=== PATIENT | male | born 1955 | race Caucasian/White ===

== ENCOUNTER 2024-02-11 20:59 | Emergency (ER) | payer OTHER, SELFPAY ==
[2024-02-11 21:04] VITALS: BP 130/82; BMI 30.3
[2024-02-12] VITALS (10 sets, daily range): BP systolic 122–156; BP diastolic 67–95
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
[2024-02-12 03:04] LABS: % Basophils 0.3 % (0-2); % Eosinophils 1.9 % (0-6); % Immature Granulocytes 0.3 % (0-0.5); % Lymphocytes 14.2 % (20.5-51.1); % Monocytes 9.3 % (1.7-9.3); Absolute Eosinophils 0.2 10^3/uL (0-0.7); Absolute Lymphocytes 1.5 10^3/uL (1.2-3.4); Absolute Neutrophils 7.9 10^3/uL (1.4-6.5); Hematocrit 45.1 % (39.0-52.0); Hemoglobin 14.5 g/dL (13.0-18.0); Mean Corp Hgb Conc. 32.2 g/dL (33.0-37.0); Mean Corpuscular Hgb 29.1 pg (27.0-31.0); Mean Corpuscular Volume 90.4 fL (80.0-94.0); Mean Platelet Volume 9.8 fL (7.4-10.4); Nucleated Red Blood Cells % 0 % (-); Platelet Count 207 10^3/uL (130-400); Red Blood Cell Count 4.99 10^6/uL (4.70-6.10); Red Cell Dist. Width 13.9 % (11.5-14.5); White Blood Cell Count 10.6 10^3/uL (4.8-10.8)
[2024-02-12] MEDS: NSS 1000 IV (03:15)
[2024-02-12 03:17] LABS: ALT (SGPT) 22 U/L (0-50); AST (SGOT) 36 U/L (17-59); Albumin 4.5 g/dl (3.5-5.0); Alkaline Phosphatase 119 U/L (38-126); Blood Urea Nitrogen 22 mg/dl (9-20); Calcium 10.3 mg/dl (8.4-10.2); Carbon Dioxide 22 mmol/L (22-30); Chloride 103 mmol/L (98-107); Estimated Creatinine Clearance 86 ml/min; Glucose 109 mg/dl (70-99); Sodium 138 mmol/L (135-145); Total Protein 7.6 g/dl (6.3-8.2); eGFR > 60.00
== END 2024-02-12 04:50 ==
LOC: EMR 20:59
PROVIDERS: Clinical Nurse Specialist Family Health; EMERGENCY PHYSICIAN Emergency Medicine
DX: T84.020A Dislocation of internal right hip prosthesis, initial encounter (principal); X50.0XXA Overexertion from strenuous movement or load, initial encounter; F17.200 Nicotine dependence, unspecified, uncomplicated
CPT/HCPCS: 99285; 27265; 96360; 99152; 73501; 73502; 80053; 85025

== ENCOUNTER 2024-03-11 01:49 | Inpatient (IN) | payer OTHER, SELFPAY ==
[2024-03-10] VITALS (34 sets, daily range): BP systolic 90–161; BP diastolic 40–147; BMI 30.7
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
[2024-03-11] VITALS (14 sets, daily range): BP systolic 119–162; BP diastolic 70–103
[2024-03-11] LABS: % Basophils 0.2 % (0-2); % Eosinophils 1.1 % (0-6); % Immature Granulocytes 0.3 % (0-0.5); % Lymphocytes 14.7 % (20.5-51.1); % Monocytes 9.7 % (1.7-9.3); Absolute Eosinophils 0.1 10^3/uL (0-0.7); Absolute Lymphocytes 0.9 10^3/uL (1.2-3.4); Absolute Monocytes 0.6 10^3/uL (0.1-0.6); Absolute Neutrophils 4.6 10^3/uL (1.4-6.5); Hematocrit 34.8 % (39.0-52.0); Hemoglobin 12.1 g/dL (13.0-18.0); Mean Corp Hgb Conc. 34.8 g/dL (33.0-37.0); Mean Corpuscular Hgb 29.7 pg (27.0-31.0); Mean Corpuscular Volume 85.5 fL (80.0-94.0); Mean Platelet Volume 9.5 fL (7.4-10.4); Nucleated Red Blood Cells % 0 % (-); Platelet Count 140 10^3/uL (130-400); Red Blood Cell Count 4.07 10^6/uL (4.70-6.10); Red Cell Dist. Width 12.7 % (11.5-14.5); White Blood Cell Count 6.2 10^3/uL (4.8-10.8)
[2024-03-11 00:09] LABS: ALT (SGPT) 28 U/L (0-50); AST (SGOT) 30 U/L (17-59); Albumin 3.3 g/dl (3.5-5.0); Alkaline Phosphatase 112 U/L (38-126); Blood Urea Nitrogen 22 mg/dl (9-20); Calcium 8.9 mg/dl (8.4-10.2); Carbon Dioxide 23 mmol/L (22-30); Chloride 102 mmol/L (98-107); Estimated Creatinine Clearance 105 ml/min; Glucose 105 mg/dl (70-99); Sodium 132 mmol/L (135-145); Total Bilirubin 0.4 mg/dl (0.2-1.3); Total Protein 6.1 g/dl (6.3-8.2); eGFR > 60.00
[2024-03-11 00:13] LABS: Erythrocyte Sed Rate 31 mm/hour (0-20)
--- NOTE | 2024-03-11 01:23 | HPS.HSE ---
Family Physician
-
Family Physician: Facility [facility]
Chief Complaint
-
Right Hip Pain
History of Present Illness
Patient is a 68y M with PMH significant for hypertension and R KAL who presents to ED from shelter complaining of right hip pain. Patient states that he was getting into bed this evening when he felt sudden pain in the R hip. He immediately felt
that it was dislocated. He has had similar dislocations in the past. He was seen here in the ED on 02/11 with hip dislocation and it was successfully reduced under conscious sedation at that time. Patient denies any other current complaints or
concerns.
Medical History
Past Medical History
Past Medical History: Reports Other
Additional Past Medical History:
Hypertension
Mood Disorder
Past Surgical History: Reports Other
Additional Past Surgical History:
Right KAL ()
Social History
Tobacco: Former Smoker (Quit smoking at the time of his initial incarceration. > 40 pack years total use.)
Alcohol: None
Family History
Family History: Not pertinent
Allergies / Home Medications
Allergies reflects when Allergies were last updated in [email or web address].
Home Medications with original date entered in [email or web address]
Allergy/Medication List:
Allergies
Allergy/AdvReac Type Severity Reaction Status Date / Time
No Known Allergies Allergy Unverified 03/10/24 19:14
Home Medications
acetaminophen 325 mg tablet 650 mg PO BID PRN mild pain/fever 03/10/24
clotrimazole 1 % topical cream 1 applic topical BID 03/10/24
losartan 25 mg tablet (Cozaar) 25 mg PO DAILY 03/10/24
multivitamin 1 tab PO DAILY 03/10/24
risperidone 0.5 mg tablet 0.5 mg PO BID 03/10/24
Review of Systems
-
History Source: Patient
A 12 point ROS was completed and negative except as noted: Yes
Constitutional: Denies Fever or Chills
Respiratory: Denies Cough or Trouble Breathing
Cardiac: Denies Chest Pain or Palpitations
Abdomen/GI: Denies Abdominal Pain, Nausea, Vomiting or Diarrhea
Musculoskeletal: Reports Joint Pain
Neurological: Denies Dizzy or Headache
Physical Exam
Vital Signs
Vital Signs
Temp Pulse Resp BP Pulse Ox
98 F 119 31 129/89 95
03/10/24 23:28 03/11/24 01:00 03/11/24 01:00 03/11/24 00:00 03/10/24 23:45
Physical Exam
General: Other (68y M in no acute distress.)
HEENT: Moist mucous membranes and PERRLA
Respiratory: Clear; No Wheezes, Rales or Rhonchi
Cardiac: S1/S2, Regular Rhythm (with ectopy) and Tachycardia; No Murmur
GI: Soft, Non Tender, Non Distended and Normal Bowel Sounds
Musculoskeletal: No Clubbing, No Cyanosis and Other (RLE internally rotated. Trace - 1+ edema at ankles.)
Skin: Other (Plaques / rashes over knees / thighs bilaterally.)
Neuro: AO x 3
Laboratory Results
-
03/10/24 23:47
03/10/24 23:47
Laboratory Results
Total Bilirubin 0.4 mg/dl (0.2-1.3) 03/10/24 23:47
AST 30 U/L (17-59) 03/10/24 23:47
ALT 28 U/L (0-50) 03/10/24 23:47
Alkaline Phosphatase 112 U/L (38-126) 03/10/24 23:47
Impression/Plan
-
A/P: Patient is a 68y M with PMH significant for hypertension and mood disorder who presents to ED from shelter for evaluation of R hip pain.
Right KAL Dislocation
- Admit for further evaluation and treatment.
- Closed reduction was attempted in the ED without success by both ED physician and Orthopedics.
- Pain control / bedrest overnight.
- Ortho re-eval in AM and likely reduction attempt under anesthesia.
- Prophylactic abx for now per Ortho recommendations.
Benign Hypertension
- Stable. Continue losartan.
Mood Disorder
- Stable. ? official diagnosis.
- Continue risperdal.
Psoriasis
- Continue topical steroid.
DVT Prophylaxis: SCDs
Code Status: Full
--- NOTE | 2024-03-11 02:25 | TRANSFER ---
Addendum entered by Brooke Perez RN 03/11/24 02:29:
Pt also reports that they have psoriasis. Multiple areas all over the body w dried scaly skin noted.
Original Note:
pt arrived to floor at 0210 dx right hip dislocation, accompanied by x2 [facility] guards. Pt is AAOx3, able to make all needs known. RLE shortened, internally rotated. B/L LE with +2 nonpitting edema - pt reports is chronic. Pt ordered bedrest, urinal
at bedside. Call miranda within reach, bed in lowest position.
[2024-03-11] MEDS: ANCEF 5 IV ×3 (02:47→18:07)
[2024-03-11 06:39] LABS: Hematocrit 36.7 % (39.0-52.0); Hemoglobin 12.4 g/dL (13.0-18.0); Mean Corp Hgb Conc. 33.8 g/dL (33.0-37.0); Mean Corpuscular Hgb 29.1 pg (27.0-31.0); Mean Corpuscular Volume 86.2 fL (80.0-94.0); Mean Platelet Volume 9.5 fL (7.4-10.4); Platelet Count 142 10^3/uL (130-400); Red Blood Cell Count 4.26 10^6/uL (4.70-6.10); Red Cell Dist. Width 12.7 % (11.5-14.5); White Blood Cell Count 6.3 10^3/uL (4.8-10.8)
[2024-03-11 06:51] LABS: Blood Urea Nitrogen 18 mg/dl (9-20); Calcium 9.4 mg/dl (8.4-10.2); Carbon Dioxide 21 mmol/L (22-30); Chloride 102 mmol/L (98-107); Estimated Creatinine Clearance 105 ml/min; Glucose 95 mg/dl (70-99); Sodium 134 mmol/L (135-145); eGFR > 60.00
--- NOTE | 2024-03-11 07:16 | W.PN.UPDATE ---
Update Note
Progress Note Update
Patient unfortunately sustained right total hip replacement dislocation yesterday. Attempted closed reduction in emergency room was unsuccessful yesterday. He will be taken to the operating room for anesthesia and right hip closed reduction versus
open reduction. Surgical location marked and consents signed by patient.
[2024-03-11] MEDS: LOTRIMIN 1% CREAM 1 APPLIC TOPICAL ×2 (08:01→20:30)
[2024-03-11] MEDS: RISPERDAL 0.5 MG PO ×2 (08:01→20:30)
[2024-03-11] MEDS: COZAAR 25 MG PO (08:02)
[2024-03-11] MEDS: DILAUDID 0.5 MG IV (09:32)
--- NOTE | 2024-03-11 12:04 | W.PN.HOSP.TC ---
Today's Communication/Plan
-
Awaiting OR time
Assessment / Plan
Assessment / Plan
Gen-AAOx3, NAD
HEENT-NC, AT, anicteric, clear oral mm
Neck-supple
CV-reg, no M, +S1/S2
Lungs-clear B/L
Abd-soft, NT, ND
Ext-no edema
Musculoskeletal-no cyanosis, clubbing, right lower extremity shortened
Skin-warm and dry
Neuro-grossly non-focal
Psych-calm, cooperative
Acute right total hip replacement dislocation -unsuccessful closed reduction in the emergency room. Orthopedic surgery input noted. Awaiting reduction in the OR, closed versus open.
Essential HTN with HTN urgency - urgency likely due to pain from hip dislocation. Losartan resumed.
Mood disorder - on Risperdal.
Psoriasis
Former smoker - quit last month.
Full code
PT/OT after hip reduction.
Anticipated Discharge: Within 24 hours
Subjective/Interval History
-
Date of Service: March 11, 2024
Patient seen/examined. Pain is controlled currently, no complaints.
Objective Data
-
Labs:
Laboratory Results
03/10/24 03/11/24
23:47 05:38
WBC 6.3
Hgb 12.4 L
Hct 36.7 L
Plt Count 142
Sodium 132 L 134 L
Potassium 4.0 4.0
Chloride 102 102
Carbon Dioxide 23 21 L
BUN 22 H 18
Creatinine 0.8 0.8
Glucose 105 H 95
Calcium 8.9 9.4
Total Bilirubin 0.4
AST 30
ALT 28
Alkaline Phosphatase 112
Vital Signs:
Vital Signs
Temp Pulse Resp BP Pulse Ox
97.5 F 112 17 162/96 97
03/11/24 11:00 03/11/24 11:00 03/11/24 11:00 03/11/24 11:00 03/11/24 11:00
I&O
03/10/24 03/11/24 03/12/24
06:59 06:59 06:59
Output Total 750 / 750 1050 / 1050
Balance -750 / -750 -1050 / -1050
Review of Systems
-
History Source: Patient
All other systems: Reviewed and negative
--- NOTE | 2024-03-11 12:13 | CM ---
Chart reviewed: Patient from [facility]
Going to OR today for closed reduction of hip dislocation
Case Management will follow for DC needs
--- NOTE | 2024-03-11 17:34 | W.PN.UPDATE ---
Addendum entered and electronically signed by Joe Kumar PA-C 03/12/24 07:31:
CORRECTION: will require 12 weeks of abduction bracing and posterior hip precautions
Original Note:
Update Note
Progress Note Update
68M s/p closed reduction of posterior KAL dislocation 03/11/2024
-reg diet or otherwise per primary
-DVT ppx per primary
-WBAT to RLE; abductor brace ordered for out of bed x6 weeks; abductor pillow foam while in bed at all times
-posterior hip precautions; PT/OT consult
-per procedure note, required maximal axial traction while supine with internal to external rotation for reduction
-if recurrent instability, recommend f/u with location of index surgery of his R KAL for definitive management for KAL recurrent instability
--- NOTE | 2024-03-11 18:10 | OR.RPT ---
Operative Report
Operative Report
Orthopedic Surgery Procedure Note
DATE OF OPERATION: 03/11/2024
PREOPERATIVE DIAGNOSES: Right prosthetic hip dislocation
POSTOPERATIVE DIAGNOSES: Same
OPERATION PERFORMED: Closed reduction right prosthetic hip
SURGEON: Rogelio Pimentel MD
ASSISTANTS: Joe Kumar PA-C
ANESTHESIA: General
COMPLICATIONS: None
INDICATIONS FOR PROCEDURE: The patient presented to the emergency department with a right prosthetic dislocation. Close reduction was attempted in the emergency department was unsuccessful. Discussed with patient and shared decision was to proceed
with closed reduction in operating room. He was consented for possible open reduction. His hip replacement was performed in outside facility about 20 years ago. The patient reports dislocating the hip after flexing to get into bed. He had a
dislocation about a month ago that was closed reduced in the OR.
We discussed the risks, benefits, and alternatives of various treatment options. Shared decision was to proceed with closed reduction. The patient understood the risks including, but not limited to, bleeding, infection, failure to relieve pain, more
pain than preop, damage to blood vessels and nerves, need for reoperation, mechanical failure of the implants, wound healing problems, stiffness, recurrent instability, blood clot, pulmonary embolism, myocardial infarction, pneumonia, arrhythmia,
CVA, and . The patient accepted these risks and wished to proceed with the procedure. All questions were answered and informed consent was obtained.
PROCEDURE IN DETAIL:
The patient was identified in the preoperative holding area. The affected limb was identified as the procedure site and marked for safety. The patient was transferred to the operating room and transferred to the operative table. General anesthesia
was performed. All bony prominences were well-padded.
Once the patient was sedated muscle relaxer was given, the hip was closed reduced with traction and internal rotation and extension. Once the hip was felt to reduce the hip was then flexed and externally rotated. This took multiple attempts with
different reduction techniques including lateral positioning. The successful reduction attempt was as described above axial traction with maximal internal rotation with the patient's supine extended. Fluoroscopy was used to confirm closed
reduction. An abduction pillow was placed. The patient awoke from anesthesia without complication.
Plan:
- Abduction brace for 3 months while ambulatory: No more than 90 degrees of flexion, 10 of adduction, or 10 of internal rotation
- Abduction pillow while in bed
- WBAT
- Posterior hip precautions
- PT/OT
[2024-03-12] VITALS (9 sets, daily range): BP systolic 93–147; BP diastolic 57–92; PULSE 102–105; O2SAT 95
[2024-03-12] MEDS: ANCEF 5 IV ×2 (02:01→09:30)
--- NOTE | 2024-03-12 07:36 | W.PN.ORTHO ---
Today's Communication / Plan
-
- Abduction brace for 3 months while ambulatory: No more than 90 degrees of flexion, 10 of adduction, or 10 of internal rotation
- Abduction pillow while in bed
- WBAT
- Posterior hip precautions
- PT/OT
Assessment
.
Distal Motor Intact: Yes
Dressing:
Clean, dry and intact.
Plan
.
Surgery / Date: Right KAL closed reduction 11 Mar 2024
Activity:
Out of bed.
PT/OT
Subjective
.
.:
Patient resting comfortably.
Vital Signs and Labs
.
Vital Signs and Labs:
Lab Results
03/11/24 05:38
03/11/24 05:38
Temp Pulse Resp BP Pulse Ox
100.2 F 115 14 125/72 95
03/12/24 03:00 03/12/24 03:00 03/12/24 03:00 03/12/24 03:00 03/12/24 03:00
[2024-03-12] MEDS: RISPERDAL 0.5 MG PO ×2 (07:56→20:42)
[2024-03-12] MEDS: COZAAR 25 MG PO (07:56)
[2024-03-12] MEDS: LOTRIMIN 1% CREAM 1 APPLIC TOPICAL ×2 (07:57→20:42)
--- NOTE | 2024-03-12 11:55 | W.PN.HOSP.TC ---
Addendum entered and electronically signed by Ziggy Marlow DO 03/12/24 12:59:
Cellulitis was ruled out
Original Note:
Today's Communication/Plan
-
Await abduction brace
PT/OT
Stop cefazolin
Check COVID-19 antigen
Assessment / Plan
Assessment / Plan
Gen-AAOx3, NAD
HEENT-NC, AT, anicteric, clear oral mm
Neck-supple
CV-reg, no M, +S1/S2
Lungs-clear B/L
Abd-soft, NT, ND
Ext-no edema
Musculoskeletal-no cyanosis, clubbing, right lower extremity shortened
Skin-warm and dry
Neuro-grossly non-focal
Psych-calm, cooperative
Acute right total hip replacement dislocation -underwent successful closed reduction in the OR on March 11. Abduction brace ordered, has yet to be delivered. Weightbearing as tolerated as per orthopedics. Awaiting PT/OT input. Discontinue further
antibiotics.
Fever -unclear etiology. Has had a chronic smoker's cough. Denies flulike symptoms. Check COVID antigen. Check CBC today. Looks nontoxic.
Essential HTN with HTN urgency - urgency resolved. Continue losartan.
Mood disorder - on Risperdal.
Psoriasis
Former smoker - quit last month.
Full code
Dispo -back to [facility] if medically stable. Otherwise will need SNF.
Anticipated Discharge: Within 24 hours
Subjective/Interval History
-
Date of Service: March 12, 2024
Patient seen and examined. Complaining of cough.
Objective Data
-
Labs:
Laboratory Results
03/12/24
11:43
WBC Pending
Hgb Pending
Hct Pending
Plt Count Pending
Vital Signs:
Vital Signs
Temp Pulse Resp BP Pulse Ox
100.0 F 121 18 129/75 93
03/12/24 10:00 03/12/24 07:56 03/12/24 07:05 03/12/24 07:56 03/12/24 07:05
I&O
03/11/24 03/12/24 03/13/24
06:59 06:59 06:59
Intake Total 595 / 595
Output Total 750 / 750 3075 / 3075
Balance -750 / -750 -2480 / -2480
Review of Systems
-
History Source: Patient
All other systems: Reviewed and negative
[2024-03-12 12:07] LABS: COVID-19 Antigen Negative (Negative)
--- NOTE | 2024-03-12 12:11 | CM ---
ORIF yesterday R hip 03/11/24.
As per Ortho note waiting for abduction brace . Will need for dc.
[facility]. Spoke with Alethea perdomo [facility] aware of above.
Guards with patient.
Will be transported to [facility] via [facility] van at dc.
[facility]
report [phone]
fax [phone]
PLAN Return to [facility]
--- NOTE | 2024-03-12 12:33 | PN.CDI ---
CDI
- -
CDI:
Physician Documentation Request
Admit Date: 03/11/24 01:49
Dear Doctor Ele,
Please review the following and provide your response in the progress notes.
Clinical Indicators:
The diagnosis of cellulitis was documented on 03/10 Ortho consult but is not consistently noted in subsequent documentation.
- 03/10 Ortho 'Right lower leg cellulitis and swelling...Recommend prophylactic antibiotics for cellulitis'
- 03/12 PN 'Psoriasis
- IV abx Ancef Q8hr given x 5
Please clarify the following:
____ - Cellulitis was present on admission and is now resolved.
____ - Cellulitis was present on admission and is still being monitored, evaluated or treated
____ - Cellulitis was ruled out
____ - Other
Use of terms such as suspected, likely, concern for, or probable (associated with a specific diagnosis that is being evaluated, monitored, or treated as if it exists) are acceptable and can be coded in the inpatient setting, when documented at the
time of discharge.
Thank you,
Ruth Soto RN
CDI Specialist
Please use your independent medical judgment in providing your response.
[2024-03-12 16:25] LABS: % Basophils 0.3 % (0-2); % Eosinophils 1.4 % (0-6); % Immature Granulocytes 0.3 % (0-0.5); % Lymphocytes 16.4 % (20.5-51.1); % Monocytes 8.6 % (1.7-9.3); Absolute Eosinophils 0.1 10^3/uL (0-0.7); Absolute Lymphocytes 1.2 10^3/uL (1.2-3.4); Absolute Monocytes 0.6 10^3/uL (0.1-0.6); Absolute Neutrophils 5.3 10^3/uL (1.4-6.5); Hemoglobin 12.9 g/dL (13.0-18.0); Mean Corp Hgb Conc. 33.1 g/dL (33.0-37.0); Mean Corpuscular Hgb 29.5 pg (27.0-31.0); Mean Platelet Volume 9.8 fL (7.4-10.4); Nucleated Red Blood Cells % 0 % (-); Platelet Count 156 10^3/uL (130-400); Red Blood Cell Count 4.38 10^6/uL (4.70-6.10); Red Cell Dist. Width 12.5 % (11.5-14.5); White Blood Cell Count 7.2 10^3/uL (4.8-10.8)
[2024-03-13] VITALS (7 sets, daily range): BP systolic 119–149; BP diastolic 72–90; PULSE 115
[2024-03-13] MEDS: RISPERDAL 0.5 MG PO ×2 (08:42→20:22)
[2024-03-13] MEDS: COZAAR 25 MG PO (08:42)
[2024-03-13] MEDS: LOTRIMIN 1% CREAM 1 APPLIC TOPICAL ×2 (08:43→20:22)
--- NOTE | 2024-03-13 13:15 | W.PN.HOSP.TC ---
Today's Communication/Plan
-
TSH
D-dimer
PT/OT
Assessment / Plan
Assessment / Plan
Gen-AAOx3, NAD
HEENT-NC, AT, anicteric, clear oral mm
Neck-supple
CV-reg, no M, +S1/S2
Lungs-clear B/L
Abd-soft, NT, ND
Ext-no edema
Musculoskeletal-no cyanosis, clubbing, right lower extremity shortened
Skin-warm and dry
Neuro-grossly non-focal
Psych-calm, cooperative
Acute right total hip replacement dislocation -underwent successful closed reduction in the OR on March 11. Abduction brace per orthopedics. Weightbearing as tolerated as per orthopedics. Awaiting PT/OT input.
Fever -unclear etiology. No evidence of cellulitis. Off antibiotics. Fever resolved. Has had a chronic smoker's cough. Denies flulike symptoms. COVID-19 and influenza negative. Lower extremity Doppler ultrasound negative. Chest x-ray clear.
White blood cell count normal.
Persistent sinus tachycardia -check TSH, D-dimer. If D-dimer elevated will check CTA to rule out pulm embolism. Asymptomatic otherwise.
Essential HTN with HTN urgency - urgency resolved. Continue losartan.
Mood disorder - on Risperdal.
Psoriasis
Former smoker - quit last month.
Full code
Dispo -back to [facility] if medically stable. Otherwise will need SNF. PT note mentions disposition to be determined.
Anticipated Discharge: Within 24 hours
Subjective/Interval History
-
Date of Service: March 13, 2024
Patient seen and examined. No complaints.
Objective Data
-
Vital Signs:
Vital Signs
Temp Pulse Resp BP Pulse Ox
98.6 F 116 16 142/79 97
03/13/24 11:08 03/13/24 11:08 03/13/24 11:08 03/13/24 11:08 03/13/24 11:08
I&O
03/12/24 03/13/24 03/14/24
06:59 06:59 06:59
Intake Total 595 / 595 960 / 960
Output Total 3075 / 3075 1100 / 1100
Balance -2480 / -2480 -140 / -140
Review of Systems
-
History Source: Patient
All other systems: Reviewed and negative
[2024-03-13 14:39] LABS: D-Dimer 2.01 ug/mlFEU (0.00-0.50)
--- NOTE | 2024-03-13 14:44 | W.PN.ORTHO ---
Today's Communication / Plan
-
68-year-old male underwent Right KAL closed reduction [address] Pimentel.
- Abduction brace for 3 months while ambulatory: No more than 90 degrees of flexion, 10 of adduction, or 10 of internal rotation.
- Abduction pillow while in bed
- WBAT
- Posterior hip precautions
- PT/OT
- If recurrent instability, recommend F/U with location of index surgeon of his R KAL for definitive management for KAL recurrent instability.
- Orthopedic surgery will sign-off at this time. Please reengage with any further questions or concerns.
Assessment
.
Distal Motor Intact: Yes
Dressing:
Clean, dry and intact.
Plan
.
Surgery / Date: Right KAL closed reduction 11 Mar 2024
Activity:
Out of bed.
PT/OT
Subjective
.
.:
Patient resting comfortably.
Vital Signs and Labs
.
Vital Signs and Labs:
Lab Results
03/12/24 16:08
03/11/24 05:38
Temp Pulse Resp BP Pulse Ox
98.6 F 116 16 142/79 97
03/13/24 11:08 03/13/24 11:08 03/13/24 11:08 03/13/24 11:08 03/13/24 11:08
[2024-03-13 15:34] LABS: TSH Reflex To Free T4 0.67 uIU/ml (0.47-4.68)
[2024-03-13] MEDS: LR 1000 IV (17:23)
--- NOTE | 2024-03-13 17:35 | W.PN.UPDATE ---
Addendum entered and electronically signed by Tony Shah MD 03/13/24 17:50:
Twelve-lead simply shows a underlying sinus rhythm with right bundle branch block and a rate of 90-100/on further inspection of rhythm strips during sleep patient has sinus bradycardia with an occasional dropped beat and/or a idioventricular beat
difficult to tell if some degree of second-degree heart block would benefit from a Holter monitor during sleep may be also aspirating or underlying sleep apnea given results of CT scan not on rate limiting medication and has not received any
narcotics today informed nursing to avoid any sedation during sleep
Original Note:
Update Note
Progress Note Update
Called by nursing as they noted a heart rate of 35 when woke the patient up heart rate reverted to about 100 looks like bundle branch block pattern will obtain twelve-lead review strips then/CTA of chest negative for pulmonary embolus however shows
bronchial impaction suggestive of aspiration component
--- NOTE | 2024-03-13 17:51 | PTCARENOTE ---
Patient site monitor noted to be alarming for bradycardic episode, heart rate down to 33-35; Patient asleep upon entering room; Awoke to voice and sternal rub; Attending physician notified; ECG ordered by Dr. Shah who also came to bedside
to assess patient; Patient denies feeling lightheaded or dizzy, was sleep prior to being woken up by RN's; Vital signs taken; Assessment ongoing
[2024-03-14 03:44] VITALS: BP 136/83
[2024-03-14] MEDS: LR 1000 IV (06:16)
[2024-03-14 07:00] VITALS: BP 136/83
[2024-03-14] MEDS: COZAAR 25 MG PO (07:42)
[2024-03-14] MEDS: RISPERDAL 0.5 MG PO (07:43)
[2024-03-14] MEDS: LOTRIMIN 1% CREAM 1 APPLIC TOPICAL (07:43)
--- NOTE | 2024-03-14 08:52 | PTCARENOTE ---
pt wakes to name. states min pain. brace on hip. ivf running as ordered.
--- NOTE | 2024-03-14 10:58 | W.PN.HOSP.TC ---
Today's Communication/Plan
-
Speech therapy consult
Discharge
Assessment / Plan
Assessment / Plan
Gen-AAOx3, NAD
HEENT-NC, AT, anicteric, clear oral mm
Neck-supple
CV-reg, no M, +S1/S2
Lungs-clear B/L
Abd-soft, NT, ND
Ext-no edema
Musculoskeletal-no cyanosis, clubbing, right lower extremity shortened
Skin-warm and dry
Neuro-grossly non-focal
Psych-calm, cooperative
Acute right total hip replacement dislocation -underwent successful closed reduction in the OR on March 11. Abduction brace per orthopedics. Weightbearing as tolerated as per orthopedics. Awaiting PT/OT input.
Fever -suspect low-grade fever related to acute on chronic aspiration. No evidence of active infection.
Persistent sinus tachycardia -suspect related to aspiration. CT chest negative for pulmonary embolism but does show moderate bilateral bronchitis and acute airway aspiration. Underlying etiology could very well be obstructive sleep apnea. Patient
states he had a sleep study many years ago but does not remember the results. I encouraged him to get another sleep study as an outpatient after he is discharged from present.
Speech therapy consulted for evaluation of his swallowing.
Essential HTN with HTN urgency - urgency resolved. Continue losartan.
Mood disorder - on Risperdal.
Psoriasis
Former smoker - quit last month.
Full code
Dispo -back to [facility] today. Discussed with case management.
32 minutes spent in discharge process.
Anticipated Discharge: Today
Subjective/Interval History
-
Date of Service: March 14, 2024
Patient seen and examined. No complaints.
Objective Data
-
Vital Signs:
Vital Signs
Temp Pulse Resp BP Pulse Ox
98.9 F 100 17 136/83 94
03/14/24 07:00 03/14/24 07:42 03/14/24 07:00 03/14/24 07:42 03/14/24 07:00
I&O
03/13/24 03/14/24 03/15/24
06:59 06:59 06:59
Intake Total 960 / 960 1940 / 1940
Output Total 1100 / 1100 1525 / 1525
Balance -140 / -140 415 / 415
Review of Systems
-
History Source: Patient
All other systems: Reviewed and negative
--- NOTE | 2024-03-14 11:04 | W.DS.TRANS ---
DC Summary - Confidential Investigator
-
Discharge Instructions:
Discharge Diagnosis/Procedures Right hip prosthetic joint dislocation,
aspiration pneumonitis
Diet Regular
Activity With assistance
Additional Activity Weightbearing as tolerated. Posterior hip
precautions. Abduction pillow while in bed.
Abduction brace for 3 months while ambulatory.
Instructions:
Stand-Alone Forms:
Changes to Home Medications: No
Discharge Medications:
DC Medications w/original date entered in [facility]
acetaminophen 325 mg tablet 650 mg PO BID PRN mild pain/fever 03/10/24
clotrimazole 1 % topical cream 1 applic topical BID 03/10/24
losartan 25 mg tablet (Cozaar) 25 mg PO DAILY 03/10/24
multivitamin 1 tab PO DAILY 03/10/24
risperidone 0.5 mg tablet 0.5 mg PO BID 03/10/24
Home Medication Changes
Pending Results: No
[2024-03-14 11:30] VITALS: BP 120/78
[2024-03-14 11:55] VITALS: BP 120/70
--- NOTE | 2024-03-14 12:48 | PTOTSP ---
SPEECH THERAPY SWALLOW EVALUATION:
Patient exhibits clinical signs of suspected pharyngeal dysphagia, with oral swallow grossly WFL at this time. Unknown etiology of pharyngeal dysphagia as pt without any major pre-disposing dysphagia risk factors, though likely in part acutely
related to recent hip surgery 03/11. Patient with signs concerning for aspiration with sequential sips of thin liquid (coughing), along with intermittent wet vocal quality. Chest CT concerning for acute airway aspiration; fever documented. Given
these indications, unable to rule out dysphagia and/or aspiration at bedside. Would consider Videofluoroscopic Swallowing Study to further assess patient's swallow physiology; However, patient unable to tolerate positioning requirements for VFSS at
this time given hip pain. Pt currently on a Regular texture diet, thin liquids, and appears stable at this time. Recommend continue Regular texture diet, thin liquids with aspiration precautions in place. Medications whole with thin liquid one at a
time. Educated patient on aspiration precautions including: Upright positioning; Small single sips; Small bites; Slow rate of intake. Monitor CXR, labs, temperature. Oral care 3-5x/day. Throat clear when wet vocal quality. Should patient exhibit
decline in mental or respiratory status, or exhibit signs concerning for aspiration, d/c oral diet until re-assessed by ST. VFSS could be considered as an outpatient if appropriate.
RECOMMEND:
1) Regular texture diet, thin liquids
2) Medications whole with thin liquid one at a time
3) consider Videofluoroscopic Swallowing Study when able to tolerate positioning requirements
4) Aspiration precautions: Upright positioning; Small single sips; Small bites; Slow rate of intake. Monitor CXR, labs, temperature. Oral care 3-5x/day. Throat clear when wet vocal quality. Should patient exhibit decline in mental or respiratory
status, or exhibit signs concerning for aspiration, d/c oral diet until re-assessed by ST
5) Speech Therapy to follow
== END 2024-03-14 15:48 | DRG 559 ==
LOC: 2 SOUTH 01:49
PROVIDERS: Orthopaedic Surgery; ADMITTING PHYSICIAN Hospitalist; ATTENDING PHYSICIAN Hospitalist; CONSULT PHYSICIAN Orthopaedic Surgery; EMERGENCY PHYSICIAN Emergency Medicine
PROC: 0QS6XZZ Reposition Right Upper Femur, External Approach (ICD-10-PCS; 2024-03-11)
DX: T84.020A Dislocation of internal right hip prosthesis, initial encounter (principal); J69.0 Pneumonitis due to inhalation of food and vomit; Y79.2 Prosthetic and other implants, materials and accessory orthopedic devices associated with adverse incidents; I10 Essential (primary) hypertension; I16.0 Hypertensive urgency; F39 Unspecified mood [affective] disorder; F17.200 Nicotine dependence, unspecified, uncomplicated; L40.9 Psoriasis, unspecified; Z11.52 Encounter for screening for COVID-19; J20.9 Acute bronchitis, unspecified
CPT/HCPCS: 27265; 71046; 71275; 72170; 73501; 73502; 76000; 80048; 80053; 84443; 85025; 85027; 85379; 85652; 86140; 87040; 87070; 87502; 87811; 92610; 93005; 93970; 97116; 97163; 97166; 97530; 99152; 99285; Q9967

== ENCOUNTER 2024-04-14 06:33 | Outpatient (RCR) | payer OTHER, SELFPAY | END 2024-04-14 23:59 | disposition home or self-care (01) | LOC: RST 06:33 | PROVIDERS: ATTENDING PHYSICIAN Nurse Practitioner; FAMILY PHYSICIAN General Practice | DX: R13.10 Dysphagia, unspecified (principal); R13.12 Dysphagia, oropharyngeal phase | CPT/HCPCS: 92610; 97110; 97161 ==

== ENCOUNTER 2024-04-19 15:08 | Day surgery (SDC) | payer OTHER, SELFPAY ==
[2024-04-19] VITALS (24 sets, daily range): BP systolic 103–159; BP diastolic 37–105
[2024-04-19] MEDS: DILAUDID 0.5 MG IV (08:49)
[2024-04-19 09:01] LABS: % Basophils 0.2 % (0-2); % Eosinophils 1.3 % (0-6); % Immature Granulocytes 0.6 % (0-0.5); % Lymphocytes 7.7 % (20.5-51.1); % Monocytes 8.5 % (1.7-9.3); % Neutrophils 81.7 % (42.2-75.2); Absolute Eosinophils 0.1 10^3/uL (0-0.7); Absolute Immature Granulocytes 0.1 10^3/uL (0-0.05); Absolute Lymphocytes 0.7 10^3/uL (1.2-3.4); Absolute Monocytes 0.7 10^3/uL (0.1-0.6); Hematocrit 32.8 % (39.0-52.0); Mean Corp Hgb Conc. 33.5 g/dL (33.0-37.0); Mean Corpuscular Hgb 28.9 pg (27.0-31.0); Mean Corpuscular Volume 86.1 fL (80.0-94.0); Mean Platelet Volume 9.3 fL (7.4-10.4); Nucleated Red Blood Cells % 0 % (-); Platelet Count 214 10^3/uL (130-400); Red Blood Cell Count 3.81 10^6/uL (4.70-6.10); Red Cell Dist. Width 13.2 % (11.5-14.5); White Blood Cell Count 8.6 10^3/uL (4.8-10.8)
[2024-04-19 09:14] LABS: ALT (SGPT) 21 U/L (0-50); AST (SGOT) 26 U/L (17-59); Alkaline Phosphatase 128 U/L (38-126); Blood Urea Nitrogen 14 mg/dl (9-20); Calcium 10.1 mg/dl (8.4-10.2); Carbon Dioxide 23 mmol/L (22-30); Chloride 98 mmol/L (98-107); Estimated Creatinine Clearance > 125 ml/min; Glucose 127 mg/dl (70-99); Potassium 4.2 mmol/L (3.5-5.1); Sodium 132 mmol/L (135-145); Total Bilirubin 0.5 mg/dl (0.2-1.3); Total Protein 7.2 g/dl (6.3-8.2); eGFR > 60.00
[2024-04-19 09:18] LABS: NT-proBNP < 20.0 pg/ml
[2024-04-19] MEDS: DIPRIVAN 100 MG IV (09:34)
--- NOTE | 2024-04-19 09:55 | ED.GENMED ---
History of Present Illness
<Tracey Dominguez PA-C - Last Filed: 04/19/24 16:07>
General
Chief Complaint: Musculo-Skeletal Complaint
Source: patient
Exam Limitations: none
Time Seen by Provider: 04/19/24 08:30
Nursing documentation reviewed up to this point in time: agreed with
History of Present Illness
History of Present Illness:
68 y/o M with h/o psoriasis, edema, depression, mental illness
from retirement
h/o R THR 40 years ago
has had multiple dislocations in the past
was here 1 mo ago and had attempted reduction by ED and also by ortho consulting [employer] fore[employer] dr. rose without success, required closed reduction in the OR by dr. rivera 03/11
pt since has been ok but then redislocated sometime overnight
he had no fall but it dislocate don the way to the urinal
has a lot of pain but otherwies no other complaints
has chronic rash on legs secondary to eczema and edema in his legs on lasix
former alcohol until a few months ago
Past History
<Tracey Dominguez PA-C - Last Filed: 04/19/24 16:07>
Past History
ED Past Medical History: Psychiatric; Negative Asthma, HTN, Hypercholesterolemia or NIDDM
ED Past Surgical History: Orthopedic (Right hip replacement)
Social History
Tobacco: Smoker
Alcohol: Daily (Beer 3)
Personal:
Living: retirement
Review of Systems
<JUAN MANUEL Martin Last Filed: 04/19/24 16:07>
Review of Systems
Allergies reviewed?: Yes
All Other Systems: Not applicable
Phy Exam
<JUAN MANUEL Martin Last Filed: 04/19/24 16:07>
Physical Exam
Physical Exam:
GENERAL: Alert , in no apparent distress
HEAD: NCAT
NECK: no midline tenderness, active ROM intact, no paraspinal muscle tenderness;
ENT: o/p clr, mmm. no hemotympanum
CARDIAC: tachycardia no edema
LUNGS: Clear breath sounds bilaterally, no acute respiratory distress, no wheezes/rales/rhonchi
ABDOMEN: Soft, without focal tenderness, no r/g, no cvat
NEUROLOGICAL: Alert and oriented, no focal neuro deficits, CN intact, 5/5 strength, sensation intact
SKIN: Warm and dry, erythematous patches and papules on b/l LE
MUSCULOSKELETAL: moderate b/l LE edema 1+ pitting
right hip not exertnally rotated; limtied ROM
PSYCH: Normal and appropriate interaction.
Course
<Tracey Dominguez PA-C - Last Filed: 04/19/24 16:07>
Orders/Labs/Results
Orders:
Orders
04/19/24 08:43
Electrocardiogram (*1) Urgent
Reason for Study: Tachycardia
EKG- Treatment ONCE
HYDROmorphone [Dilaudid] 0.5 mg IV NOW STA
Hip, Right 2-3 Views [CR Hip - RT w/wo Pel 2-3 Vw*] Urgent
Comment:
Reason For Exam: right hip dislocation
Include a pelvis x-ray?: Yes
04/19/24 08:48
Complete Blood Count/With Diff Urgent
Comprehensive Metabolic Panel Urgent
NT-proBNP Urgent
04/19/24 09:18
Propofol [Diprivan] 40 ml .ROUTE .STK-MED
04/19/24 09:21
ASA Classification Routine
Propofol [Diprivan] 100 mg IV NOW STA
04/19/24 Lunch
NPO
Allow oral meds: Yes
Allow clear liquids: No
04/19/24 12:40
Povidone Iodine 10% Solution [Povidone Iodine 10%] 114 ml 0.9% Sod Chloride 3000 ml Irr [Nss Irrigation Bag] 3,000 ml IRRIG OR
Tranexamic Acid 3,000 mg 0.9% Sodium Chloride 250 ml [Nss] 250 ml IRRIG OR
04/19/24 13:05
CR Hip - RT w/wo Pel 2-3 Vw* Urgent
Comment:
Reason For Exam: Post attempted reduction by ER Staff
Include a pelvis x-ray?: Yes
04/19/24 13:53
HYDROmorphone [Dilaudid] 0.25 mg IV PACU-Q5MPRN PRN
HYDROmorphone [Dilaudid] 0.5 mg IV PACU-Q5MPRN PRN
Meperidine [Demerol] 12.5 mg IV PACU-Q5MPRN PRN
Ondansetron Injectable [Zofran] 4 mg IV PACU-ONCEPRN PRN
Prochlorperazine [Compazine] 5 mg IV PACU-ONCEPRN PRN
Notify MD As Directed
Notify physician if: for SDS patients with known or suspected sleep obstructive sleep apnea, monitor in the
PACU.
Notify MD for any apneic/desaturation episodes
O2 Therapy [RESP] Urgent
Titrate/Wean O2 to maintain O2 sat greater than (%): 92
Special Instructions: -Provide supplemental oxygen to achieve O2 sat of 92% or greater.
-After 15 min, may wean O2 and discontinue if patient is able to maintain O2 sat of 92%
or greater during recovery period.
If patient is a discharge home, without oxygen therapy, notify anestheiologist if
unable to maintain O2 SAT of 92% or greater on room air for MD clearance.
04/19/24 14:00
Normosol (Mult Electrolytes) [Normosol-R] 1,000 ml IV PER PROTOCOL
04/19/24 15:15
Lidocaine 2% Mpf [Xylocaine Mpf 2%] 100 mg .ROUTE .STK-MED ONE
Propofol [Diprivan] 20 ml .ROUTE .STK-MED
Rocuronium [place] [Rocuronium] 50 mg .ROUTE .STK-MED ONE
04/19/24 15:16
Dexamethasone Sod Phosphate [Decadron] 20 mg .ROUTE .STK-MED ONE
Fentanyl Citrate/Pf [Sublimaze] 100 mcg .ROUTE .STK-MED ONE
Midazolam HCl [Versed] 2 mg .ROUTE .STK-MED ONE
Ondansetron Injectable [Zofran] 4 mg .ROUTE .STK-MED ONE
Abnormal Lab Results
04/19/24
08:48
RBC 3.81 L 10^6/uL
(4.70-6.10)
Hgb 11.0 L g/dL
(13.0-18.0)
Hct 32.8 L %
(39.0-52.0)
Abs Immat Gran (auto) 0.1 H 10^3/uL
(0-0.05)
Absolute Neuts (auto) 7.0 H 10^3/uL
(1.4-6.5)
Absolute Lymphs (auto) 0.7 L 10^3/uL
(1.2-3.4)
Absolute Monos (auto) 0.7 H 10^3/uL
(0.1-0.6)
Immature Gran % 0.6 H %
(0-0.5)
Neutrophils % 81.7 H %
(42.2-75.2)
Lymphocytes % 7.7 L %
(20.5-51.1)
Sodium 132 L mmol/L
(135-145)
Glucose 127 H mg/dl
(70-99)
Alkaline Phosphatase 128 H U/L
(38-126)
04/19/24 08:48
04/19/24 08:48
Vital Signs
Initial and Last Documented VS:
Initial Vital Signs
BP
148/81
04/19/24 08:30
Last Documented Vital Signs
Temp Pulse Resp BP Pulse Ox
97.8 F 113 27 125/79 93
04/19/24 08:31 04/19/24 13:15 04/19/24 12:45 04/19/24 13:00 04/19/24 12:45
<Carlos Quinones, - Last Filed: 04/19/24 13:49>
Orders/Labs/Results
Orders:
Orders
04/19/24 08:43
Electrocardiogram (*1) Urgent
Reason for Study: Tachycardia
EKG- Treatment ONCE
HYDROmorphone [Dilaudid] 0.5 mg IV NOW STA
Hip, Right 2-3 Views [CR Hip - RT w/wo Pel 2-3 Vw*] Urgent
Comment:
Reason For Exam: right hip dislocation
Include a pelvis x-ray?: Yes
04/19/24 08:48
Complete Blood Count/With Diff Urgent
Comprehensive Metabolic Panel Urgent
NT-proBNP Urgent
04/19/24 09:18
Propofol [Diprivan] 40 ml .ROUTE .STK-MED
04/19/24 09:21
ASA Classification Routine
Propofol [Diprivan] 100 mg IV NOW STA
04/19/24 Lunch
NPO
Allow oral meds: Yes
Allow clear liquids: No
04/19/24 12:40
Povidone Iodine 10% Solution [Povidone Iodine 10%] 114 ml 0.9% Sod Chloride 3000 ml Irr [Nss Irrigation Bag] 3,000 ml IRRIG OR
Tranexamic Acid 3,000 mg 0.9% Sodium Chloride 250 ml [Nss] 250 ml IRRIG OR
04/19/24 13:05
CR Hip - RT w/wo Pel 2-3 Vw* Urgent
Comment:
Reason For Exam: Post attempted reduction by ER Staff
Include a pelvis x-ray?: Yes
04/19/24 13:53
HYDROmorphone [Dilaudid] 0.25 mg IV PACU-Q5MPRN PRN
HYDROmorphone [Dilaudid] 0.5 mg IV PACU-Q5MPRN PRN
Meperidine [Demerol] 12.5 mg IV PACU-Q5MPRN PRN
Ondansetron Injectable [Zofran] 4 mg IV PACU-ONCEPRN PRN
Prochlorperazine [Compazine] 5 mg IV PACU-ONCEPRN PRN
Notify MD As Directed
Notify physician if: for SDS patients with known or suspected sleep obstructive sleep apnea, monitor in the
PACU.
Notify MD for any apneic/desaturation episodes
O2 Therapy [RESP] Urgent
Titrate/Wean O2 to maintain O2 sat greater than (%): 92
Special Instructions: -Provide supplemental oxygen to achieve O2 sat of 92% or greater.
-After 15 min, may wean O2 and discontinue if patient is able to maintain O2 sat of 92%
or greater during recovery period.
If patient is a discharge home, without oxygen therapy, notify anestheiologist if
unable to maintain O2 SAT of 92% or greater on room air for MD clearance.
04/19/24 14:00
Normosol (Mult Electrolytes) [Normosol-R] 1,000 ml IV PER PROTOCOL
04/19/24 15:15
Lidocaine 2% Mpf [Xylocaine Mpf 2%] 100 mg .ROUTE .STK-MED ONE
Propofol [Diprivan] 20 ml .ROUTE .STK-MED
Rocuronium [place] [Rocuronium] 50 mg .ROUTE .STK-MED ONE
04/19/24 15:16
Dexamethasone Sod Phosphate [Decadron] 20 mg .ROUTE .STK-MED ONE
Fentanyl Citrate/Pf [Sublimaze] 100 mcg .ROUTE .STK-MED ONE
Midazolam HCl [Versed] 2 mg .ROUTE .STK-MED ONE
Ondansetron Injectable [Zofran] 4 mg .ROUTE .STK-MED ONE
Abnormal Lab Results
04/19/24
08:48
RBC 3.81 L 10^6/uL
(4.70-6.10)
Hgb 11.0 L g/dL
(13.0-18.0)
Hct 32.8 L %
(39.0-52.0)
Abs Immat Gran (auto) 0.1 H 10^3/uL
(0-0.05)
Absolute Neuts (auto) 7.0 H 10^3/uL
(1.4-6.5)
Absolute Lymphs (auto) 0.7 L 10^3/uL
(1.2-3.4)
Absolute Monos (auto) 0.7 H 10^3/uL
(0.1-0.6)
Immature Gran % 0.6 H %
(0-0.5)
Neutrophils % 81.7 H %
(42.2-75.2)
Lymphocytes % 7.7 L %
(20.5-51.1)
Sodium 132 L mmol/L
(135-145)
Glucose 127 H mg/dl
(70-99)
Alkaline Phosphatase 128 H U/L
(38-126)
04/19/24 08:48
04/19/24 08:48
Vital Signs
Initial and Last Documented VS:
Initial Vital Signs
BP
148/81
04/19/24 08:30
Last Documented Vital Signs
Temp Pulse Resp BP Pulse Ox
97.8 F 113 27 125/79 93
04/19/24 08:31 04/19/24 13:15 04/19/24 12:45 04/19/24 13:00 04/19/24 12:45
Procedures
<Carlos Quinones DO - Last Filed: 04/19/24 13:49>
Moderate Sedation
ASA Risk Score: Class III
Chart and allergies reviewed: Yes
Consent for anesthesia obtained: Yes
Time out completed (validating right patient & procedure): Yes
Moderate Sedation Start Time(when first medication is given): 09:30
History of difficult intubation: No
Airway free of obstruction: Yes
Patient has a gag reflex: Yes
Patient is able to open mouth: Yes
Patient has no dentures: Yes
Patient has no loose teeth: Yes
Medication administered by Provider during Moderate Sedation: IV Propofol (mg)
Total dose administered: 100
Time drug administered: 09:30
Moderate Sedation Procedure End Time: 09:40
Comment: The patient was given 40 mg then 40 mg and 20 mg of IV propofol.
Joint/Fracture Reduction
Right Hip:
Indication for procedure:: hip dislocation
Procedure completed by: Dr. Quinones / Theresa Dominguez
Consent form signed: Yes
Joint reduced: with anesthesia sedation
Injury was: closed
Further treatement: needs further treatment
Capillary Refill: normal
Normal distal neurovascular exam?: Yes
<Tracey Dominguez PA-C - Last Filed: 04/19/24 16:07>
MDM/Problems Addressed
Differential Diagnosis Includes:
hip dislocation, hi pfracture, cellulitis, pain causing tachycarida
MDM/Problems Addressed:
68 y/o M with h/o remote R THR with multiple discloations in the past
here 1 mo ago for same, required closed reduction in the OR by dr. maldonado
here with R hip dislocation sinc elastnight
pt is tachycardic, no fever
uncomfortable
limited ROM ofthe leg which is not shortneed or rotated
hr improved with pain meds
xray confirmed that the hip was dislocated laterally and superiorly, independently reviewed by me
discussed risk/benefit of mod sedation and pt consented
i noted from last attempts that pt desatted with propofol
unfortunately we were unable to reduce the hip an dpt did briefly de sat to 87% which improved with oxygen
we consutled orthopedics, starting with [facility] ortho dr. kaufman as they were involved in patient's care last month
and there was some discussion about whether the patient belonged to their service or to unassigned ortho which would be [facility]
i did speak with dr. zhang from [facility] who felt that the patient was established with the other service and delinced the consult
ultimately, the patient was admitted to the OR for reduction with the ortho group [facility]
<Tracey Dominguez PA-C - Last Filed: 04/19/24 16:07>
*Critical Care Note
Total Time (30-74mins, 75-104mins- exclusive of procedures): Not Applicable (30 minutes talking with multiple consultants regarding disposition for the patient)
ED Attending Note
<Tracey Dominguez PA-C - Last Filed: 04/19/24 16:07>
-
Portions of this chart may have been created with voice recognition software.� Occasional wrong word or��sound alike� substitutions may have occurred due to the inherent limitations of voice recognition software.
<Carlos Quinones DO - Last Filed: 04/19/24 13:49>
ED Attending Note
Patient seen and examined by attending physician: Yes
I performed the substantive portion of visit, reviewed & personally made and approve the management plan that is documented in note by myself or KASSIE.: Yes
I performed a history and physical exam of patient and discussed management with resident, I reviewed resident's note and agree with documented findings and plan of care.: Yes
ED Attending Note:
I evaluated the patient at bedside. We gave a total of 100 mg of propofol and the patient did desat and did require jaw thrust and some airway manipulation and additional oxygen but did not require [id number] ventilation. We attempted several
times to reduce the right hip. This was unsuccessful on multiple attempts. Review of old records indicate that he required closed reduction in the OR 1 month ago.
Discharge Plan
Departure
Patient Disposition: Admit
Date of Disposition: 04/19/24
Time of Disposition: 13:40
Admit to: OR
Admit to doctor: DORITA
Presentation/result/management discussed w/ accepting MD/DO: DORITA
Patient with high blood pressure during this ER visit?: No
Condition: Fair
Covid-19: Not Applicable
Discharge Problem:
Dislocation, hip closed
Interventions
Interventions:
*Risk Screen - Suicide Last Done: 04/19/24 08:30
*General Assessment Last Done: 04/19/24 08:30
*Neglect/Abuse Screening Last Done: 04/19/24 08:30
ED- Fall Risk Assessment Last Done: 04/19/24 12:34
*ED COVID-19 Vaccine History Last Done: 04/19/24 08:30
*Nursing Disposition Last Done: 04/19/24 13:41
ED-Musculoskeletal Assessment Last Done: 04/19/24 08:31
Discharge Date and Time
Discharge Date/Time: 04/19/24 13:42
--- NOTE | 2024-04-19 12:23 | CON.ORTHO ---
Consultation
-
Date/Time Consultation Requested: 04/19/24 @11:30am
Date/Time Consultation Performed: 04/19/24 @12:15pm
Requesting Provider: ER Physician
Performing Provider: Ava Barriga PA-C, Brenden Schumacher/Jefferson Newberry
Reason for Consultation: right hip dislocation
Consultation - Orthopedics
History
HPI: 68yo male presents [facility] to [facility] for right hip dislocation. He was walking to the bathroom when he felt the hip dislocate. He reports that his right KAL was performed about 40 years ago. Multiple attempts of reduction were made
in the ER and unsuccessful. He had a similar event about one month ago that required closed reduction of the hip in the operating room with Dr. Pimentel. Currently, he endorses discomfort in the right hip. He denies numbness/tingling.
PAST MEDICAL HISTORY: HTN, hypercholesterolemia, psoriasis
PAST SURGICAL HISTORY: Right KAL
SOCIAL HISTORY: denies current tobacco, alcohol.
FAMILY HISTORY: non contributory
REVIEW OF SYSTEMS: 12 point review of systems obtained and negative except those mentioned in the HPI
Allergies / Home Medications
Allergy/AdvReac Type Severity Reaction Status Date / Time
No Known Allergies Allergy Unverified 03/10/24 19:14
�Medication �Instructions �Recorded
acetaminophen 325 mg tablet 650 mg PO BIDPRN PRN mild pain 04/19/24
aripiprazole 400 mg suspension, 400 mg IM QMONTH 04/19/24
extended rel.intramuscular syringe
(Kaykay Ratliff)
furosemide 40 mg tablet 40 mg PO DAILY 04/19/24
losartan 25 mg tablet 25 mg PO DAILY 04/19/24
multivitamin 1 tab PO DAILY 04/19/24
risperidone 1 mg tablet 1 mg PO BID 04/19/24
triamcinolone acetonide 0.1 % 1 applic topical HSPRN PRN 04/19/24
topical ointment elbows/sacrum/B/L thighs
Vital Signs / Lab Results
Temp Pulse Resp BP Pulse Ox
97.8 F 112 26 123/87 92
04/19/24 08:31 04/19/24 11:00 04/19/24 11:00 04/19/24 11:00 04/19/24 11:00
04/19/24 08:48
04/19/24 08:48
RADIOGRAPHIC FINDINGS:
Xrays right hip show superior lateral dislocation of the prosthetic right hip
PHYSICAL EXAM:
General: AAOx3, in no acute distress
HEENT: NCAT, sclera anicteric, normal hearing
Heart: No JVD
Lungs: Normal work of breathing on nasal cannula
MSK: Directed exam of right lower extremity with well healed surgical scar. ROM unable to be performed. +TTP to the lateral hip. Calf soft and nontender. NVI distally
Assessment / Plan
ASSESSMENT: 68yo male with right KAL dislocation
PLAN: Unfortunately, Mr. Castellanos has dislocated his right KAL. He had a similar episode about one month ago and was reduced in the OR by Dr. Pimentel on 03/11/24. Multiple attempts made on the ER for reduction and were unsuccessful. Will require
reduction in the operating room. Will plan for closed reduction in the OR under the direction of Dr. Newberry later today. Patient also consented for possible open reduction and possible right hip revision in the event closed reduction is
unsuccessful. The risks, benefits, potential complications were discussed and he agrees to proceed. Surgical and blood consents obtained and scanned in to chart. Copy of consent also placed at OR frontend engineer. Remain NPO. He is to remain on bedrest
for now. Continue with pain management as needed.
== END 2024-04-19 17:52 ==
LOC: SDS 15:08
PROVIDERS: Physician Assistant; ATTENDING PHYSICIAN Orthopaedic Surgery; EMERGENCY PHYSICIAN Emergency Medicine
DX: M24.451 Recurrent dislocation, right hip (principal); T84.020A Dislocation of internal right hip prosthesis, initial encounter; Y79.2 Prosthetic and other implants, materials and accessory orthopedic devices associated with adverse incidents
CPT/HCPCS: 27266; 27265; 73502; 76000; 80053; 83880; 85025; 93005; 96374; 96375; 99152; 99285

== ENCOUNTER 2024-04-19 18:07 | Emergency (ER) | payer OTHER, SELFPAY ==
[2024-04-19] VITALS (45 sets, daily range): BP systolic 111–171; BP diastolic 43–99; BMI 32.3
--- NOTE | 2024-04-19 19:41 | ED.GENMED ---
History of Present Illness
General
Chief Complaint: Musculo-Skeletal Complaint
Source: patient
Exam Limitations: none
Time Seen by Provider: 04/19/24 18:08
Nursing documentation reviewed up to this point in time: agreed with
History of Present Illness
History of Present Illness:
68-year-old male with history as documented returns to the emergency room with right hip dislocation. Patient is currently at [facility]. 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 He was just seen in this
emergency room earlier today with a right hip dislocation�attempts at ER reduction failed and he was taken to the OR for closed reduction under general anesthesia (Dr. Newberry). When he was discharged after reduction according to patient/long term
guards they were attempting to put him back in the van to return back to long term and when he was trying to sit down he felt his hip pop out once again. He did still have his knee immobilizer on at the time he says. Was immediately brought back for
assessment. Aside from pain in his hip he denies any other complaints.
Past History
Past History
ED Past Medical History: Psychiatric; Negative Asthma, HTN, Hypercholesterolemia or NIDDM
ED Past Surgical History: Orthopedic (Right hip replacement)
Social History
Tobacco: Smoker
Alcohol: Daily (Beer 3)
Personal:
Living: long term
Review of Systems
Review of Systems
All Other Systems: ROS reviewed and negative except as documented in HPI and ROS
Musculoskeletal: Reports joint pain
Phy Exam
Physical Exam
Physical Exam:
General: Awake, alert, oriented x3
Head: Normocephalic, atraumatic
Eyes: Conjunctiva normal
Throat: Airway intact, handling secretions, moist mucous membranes
Neck: Trachea midline
Lungs: Clear to auscultation bilaterally, no wheezing, rales, rhonchi
Heart: Tachycardia with regular rhythm
Neuro: Cranial nerves grossly intact, speech fluid, distal motor and sensory function intact right lower extremity
Extremities: Bilateral lower extremity edema; right lower extremity is shortened, limited range of motion of the right hip with significant pain with attempts at range of motion; has a good strong right femoral pulse and right DP pulse
Scores
Heart Failure Risk
Heart Failure Risk Score: Not Applicable
Heart Score for Chest Pain Patients
STEMI patient?: Not applicable
Withdrawal Assessment of Alcohol
Withdrawal Assessment Completed?: Not applicable
Course
Orders/Labs/Results
Orders:
Orders
04/19/24 18:09
CR Hip - RT without Pel 1 Vw Urgent
Reason For Exam: right hip dislocation
04/19/24 18:40
Propofol [Diprivan] 20 ml .ROUTE .STK-MED
04/19/24 19:23
CR Hip - RT without Pel 1 Vw Urgent
Comment:
Reason For Exam: post reduction
Vital Signs
Initial and Last Documented VS:
Initial Vital Signs
Temp Pulse Resp Pulse Ox
36.8 C 125 18 99
04/19/24 18:13 04/19/24 18:13 04/19/24 18:13 04/19/24 18:13
Last Documented Vital Signs
Temp Pulse Resp BP Pulse Ox
36.8 C 110 25 153/83 96
04/19/24 18:13 04/19/24 20:25 04/19/24 20:25 04/19/24 20:25 04/19/24 20:25
Procedures
Moderate Sedation
ASA Risk Score: Class II
Chart and allergies reviewed: Yes
Consent for anesthesia obtained: Yes
Time out completed (validating right patient & procedure): Yes
Moderate Sedation Start Time(when first medication is given): 19:09
History of difficult intubation: No
Airway free of obstruction: Yes
Patient has a gag reflex: Yes
Patient is able to open mouth: Yes
Patient has no dentures: Yes
Patient has no loose teeth: Yes
Medication administered by Provider during Moderate Sedation: IV Propofol (mg)
Total dose administered: 200
Time drug administered: 19:09
Moderate Sedation Procedure End Time: 19:30
Comment: Patient had brief desaturation requiring short period of bagging with BVM
Joint/Fracture Reduction
Right Hip:
Indication for procedure:: hip dislocation
Procedure completed by: Zeke Coffey MD
Consent form signed: Yes
Anesthesia/sedation: Moderate sedation
Injury was: closed
Further treatement: no treatment needed
Post reduction exam: stable
Capillary Refill: normal
Normal distal neurovascular exam?: Yes
Peripheral Pulses: dorsalis pedis (right): 2+
MDM/Problems Addressed
Differential Diagnosis Includes:
Hip dislocation, hip fracture
MDM/Problems Addressed:
68-year-old male presents to the emergency room for right hip issue�has a distant history of total hip replacement on the right, was seen earlier today for hip dislocation which required reduction in the OR under general anesthesia. On discharge
his hip dislocated once again while they were trying to put him in the van to return to long term. Exam seems consistent with recurrent dislocation. Neurovascularly intact. Obtain hip x-ray which confirms that he is once again dislocated. Case
discussed with orthopedics who recommended attempt at ER reduction once again. Patient comfortable with this plan.
Able to successfully reduced hip with some difficulty under moderate sedation here in the ER. X-ray confirms reduction. Knee immobilizer in place. Ortho recommended strict hip precautions and knee immobilizer at all times. Will arrange for
ambulance ride back to long term to prevent any hyperflexion as current transport makes it difficult to return him to present without flexing significantly at the hip.
Acute Exacerbation and/or Progression of Chronic Illness:
Acutely hypertensive
Acute Exacerbation and/or Progression of Chronic Illness: HTN
*Radiology
Radiology exam reviewed: preliminary read by ED provider and radiology read reviewed
*Pulse Oximetry
Patient hypoxic: no
*Critical Care Note
Total Time (30-74mins, 75-104mins- exclusive of procedures): Not Applicable
Data Reviewed
Review of Other/Old Records Reveals: Records and Operative Reports
Source: patient, records and police
Patient Management
Discussion with other providers: Variety Saw Operator (Discussed with orthopedics)
ED Attending Note
-
Portions of this chart may have been created with voice recognition software.� Occasional wrong word or��sound alike� substitutions may have occurred due to the inherent limitations of voice recognition software.
Discharge Plan
Departure
Patient Disposition: Home (Routine Discharge)
Date of Disposition: 04/19/24
Time of Disposition: 20:20
Patient with high blood pressure during this ER visit?: No
Discharge Problem:
Dislocation, hip closed
Instructions: Knee Immobilizer (DC)
Prescriptions:
No Action
multivitamin [TAB A JACKIE] Tablet
1 tab PO DAILY
furosemide 40 mg Tablet
40 mg PO DAILY
acetaminophen 325 mg Tablet
650 mg PO BIDPRN PRN (Reason: mild pain)
triamcinolone acetonide 0.1 % Ointment
1 applic TOPICAL HSPRN PRN (Reason: elbows/sacrum/B/L thighs)
Patient Comments:
04/19/2024, for psoriasis.
losartan 25 mg Tablet
25 mg PO DAILY
risperidone 1 mg Tablet
1 mg PO BID
Abilify Maintena 400 mg Suspension,Extended Rel Syring
400 mg IM QMONTH
Referrals:
[facility] [Family Provider] -
Jefferson Newberry MD [Active] - Call in 1-3 days for appt
Activity Restrictions/Additional Instructions:
THE KNEE IMMOBILIZER MUST REMAIN IN PLACE AT ALL TIMES!!! YOU SHOULD NOT BE BENDING OVER OR FLEXING YOUR HIP AT ALL.
Thank you for visiting the Emergency Department at [facility].
1. Please schedule a follow up appointment as directed. Call first thing tomorrow morning to make an appointment.
2. If indicated, please take your medications as instructed and indicated on discharge paperwork.
3. If any of your symptoms do not improve, or persist, or become more severe within 6-12 hours, please return to the emergency department for further care.
4. Please return to the emergency department if you develop a headache, neck pain/stiffness, fever greater than 100.4F, chest pain, shortness of breath, persistent nausea, vomiting, slurred speech, difficulty walking, numbness/tingling, weakness,
signs of infection or any other symptoms that are worrisome to you.
Please call [phone] if you have any questions.
Interventions
Interventions:
*Risk Screen - Suicide Last Done: 04/19/24 18:13
*General Assessment Last Done: 04/19/24 18:13
*Neglect/Abuse Screening Last Done: 04/19/24 18:13
*ED COVID-19 Vaccine History Last Done: 04/19/24 18:13
ED-Musculoskeletal Assessment Last Done: 04/19/24 18:13
Discharge Date and Time
Print Language: MOHAWK
== END 2024-04-19 23:32 | disposition home or self-care (01) ==
LOC: EMR 18:07
PROVIDERS: EMERGENCY PHYSICIAN Emergency Medicine
DX: T84.020A Dislocation of internal right hip prosthesis, initial encounter (principal); Y79.2 Prosthetic and other implants, materials and accessory orthopedic devices associated with adverse incidents; F17.200 Nicotine dependence, unspecified, uncomplicated; Z96.641 Presence of right artificial hip joint
CPT/HCPCS: 99283; 27266; 73501

== ENCOUNTER 2024-04-20 12:11 | Emergency (ER) | payer OTHER, SELFPAY ==
[2024-04-20] VITALS (24 sets, daily range): BP systolic 113–154; BP diastolic 69–105; BMI 32.9
[2024-04-20] MEDS: DILAUDID 1 MG IV ×2 (12:21→15:10)
[2024-04-20 12:47] LABS: % Basophils 0.1 % (0-2); % Immature Granulocytes 0.7 % (0-0.5); % Lymphocytes 5.1 % (20.5-51.1); % Monocytes 6.4 % (1.7-9.3); % Neutrophils 87.7 % (42.2-75.2); Absolute Immature Granulocytes 0.1 10^3/uL (0-0.05); Absolute Lymphocytes 0.8 10^3/uL (1.2-3.4); Hemoglobin 11.4 g/dL (13.0-18.0); Mean Corp Hgb Conc. 32.6 g/dL (33.0-37.0); Mean Corpuscular Hgb 28.6 pg (27.0-31.0); Mean Corpuscular Volume 87.7 fL (80.0-94.0); Mean Platelet Volume 9.4 fL (7.4-10.4); Nucleated Red Blood Cells % 0 % (-); Platelet Count 233 10^3/uL (130-400); Red Blood Cell Count 3.99 10^6/uL (4.70-6.10); Red Cell Dist. Width 13.2 % (11.5-14.5); White Blood Cell Count 14.8 10^3/uL (4.8-10.8)
[2024-04-20 12:55] LABS: ALT (SGPT) 21 U/L (0-50); AST (SGOT) 30 U/L (17-59); Albumin 4.1 g/dl (3.5-5.0); Alkaline Phosphatase 124 U/L (38-126); Blood Urea Nitrogen 18 mg/dl (9-20); Carbon Dioxide 24 mmol/L (22-30); Chloride 100 mmol/L (98-107); Estimated Creatinine Clearance 112 ml/min; Glucose 119 mg/dl (70-99); Potassium 4.4 mmol/L (3.5-5.1); Sodium 135 mmol/L (135-145); Total Bilirubin 0.4 mg/dl (0.2-1.3); Total Protein 7.4 g/dl (6.3-8.2); eGFR > 60.00
--- NOTE | 2024-04-20 16:43 | ED.MUSCINJ ---
HPI-Injury
<Thor Ho PA-C - Last Filed: 04/21/24 07:45>
General
Chief Complaint: Musculo-Skeletal Complaint
Source: patient
Exam Limitations: none
Time Seen by Provider: 04/20/24 12:15
History of Present Illness-Injury
Initial Injury comments:
68-year-old [facility] for recurrent right hip dislocation. He was seen here twice yesterday most recently had his hip reduced last evening and woke up this morning states his right leg was shorter than his left. No
other known injury. He was wearing his knee immobilizer. No other complaints
Past History
<JUAN MANUEL Marx Last Filed: 04/21/24 07:45>
Past History
ED Past Medical History: Psychiatric; Negative Asthma, HTN, Hypercholesterolemia or NIDDM
ED Past Surgical History: Orthopedic (Right hip replacement)
Social History
Tobacco: Smoker
Alcohol: Daily (Beer 3)
Personal:
Living: pen[facility]entiary
Phy Exam
<JUAN MANUEL Marx Last Filed: 04/21/24 07:45>
Physical Exam
Physical Exam:
General: Well-appearing male no acute respiratory distress
HEENT: Normocephalic atraumatic
Heart: Tachycardic but regular
Lungs: Clear no wheeze or rales
Musculoskeletal exam: Right hip shortened slightly internally rotated
Injury Course
<JUAN MANUEL Marx Last Filed: 04/21/24 07:45>
Orders/Labs/Results
Orders:
Orders
04/20/24 12:13
CR Hip - RT w/wo Pel 2-3 Vw* Urgent
Reason For Exam: hip pain
04/20/24 12:17
HYDROmorphone [Dilaudid] 1 mg IV NOW STA
04/20/24 12:19
CBC/With Diff [Complete Blood Count/With Diff] Urgent
CMP [Comprehensive Metabolic Panel] Urgent
04/20/24 15:03
Propofol [Diprivan] 20 ml .ROUTE .STK-MED
04/20/24 15:09
Propofol [Diprivan] 20 ml .ROUTE .STK-MED
04/20/24 15:10
HYDROmorphone [Dilaudid] 1 mg .ROUTE .STK-MED ONE
HYDROmorphone [Dilaudid] 1 mg IV NOW STA
04/20/24 15:24
Hip, Right 1 View [CR Hip - RT without Pel 1 Vw] Urgent
Comment:
Reason For Exam: post reduction
04/20/24 18:33
CT Lower Ext W/o Iv Cont Rt Urgent
Comment:
Reason For Exam: recurrent dislocation
04/20/24 19:[address] Non Medication Order As Directed
Physician Order: foam adductor brace
Above order entered?: Yes
Abnormal Lab Results
04/20/24
12:19
WBC 14.8 H 10^3/uL
(4.8-10.8)
RBC 3.99 L 10^6/uL
(4.70-6.10)
Hgb 11.4 L g/dL
(13.0-18.0)
Hct 35.0 L %
(39.0-52.0)
MCHC 32.6 L g/dL
(33.0-37.0)
Abs Immat Gran (auto) 0.1 H 10^3/uL
(0-0.05)
Absolute Neuts (auto) 13.0 H 10^3/uL
(1.4-6.5)
Absolute Lymphs (auto) 0.8 L 10^3/uL
(1.2-3.4)
Absolute Monos (auto) 1.0 H 10^3/uL
(0.1-0.6)
Immature Gran % 0.7 H %
(0-0.5)
Neutrophils % 87.7 H %
(42.2-75.2)
Lymphocytes % 5.1 L %
(20.5-51.1)
Glucose 119 H mg/dl
(70-99)
04/20/24 12:19
04/20/24 12:19
<Adrian Branham MD - Last Filed: 04/20/24 20:30>
Orders/Labs/Results
Orders:
Orders
04/20/24 12:13
CR Hip - RT w/wo Pel 2-3 Vw* Urgent
Reason For Exam: hip pain
04/20/24 12:17
HYDROmorphone [Dilaudid] 1 mg IV NOW STA
04/20/24 12:19
CBC/With Diff [Complete Blood Count/With Diff] Urgent
CMP [Comprehensive Metabolic Panel] Urgent
04/20/24 15:03
Propofol [Diprivan] 20 ml .ROUTE .STK-MED
04/20/24 15:09
Propofol [Diprivan] 20 ml .ROUTE .STK-MED
04/20/24 15:10
HYDROmorphone [Dilaudid] 1 mg .ROUTE .STK-MED ONE
HYDROmorphone [Dilaudid] 1 mg IV NOW STA
04/20/24 15:24
Hip, Right 1 View [CR Hip - RT without Pel 1 Vw] Urgent
Comment:
Reason For Exam: post reduction
04/20/24 18:33
CT Lower Ext W/o Iv Cont Rt Urgent
Comment:
Reason For Exam: recurrent dislocation
04/20/24 19:[address] Non Medication Order As Directed
Physician Order: foam adductor brace
Above order entered?: Yes
Abnormal Lab Results
04/20/24
12:19
WBC 14.8 H 10^3/uL
(4.8-10.8)
RBC 3.99 L 10^6/uL
(4.70-6.10)
Hgb 11.4 L g/dL
(13.0-18.0)
Hct 35.0 L %
(39.0-52.0)
MCHC 32.6 L g/dL
(33.0-37.0)
Abs Immat Gran (auto) 0.1 H 10^3/uL
(0-0.05)
Absolute Neuts (auto) 13.0 H 10^3/uL
(1.4-6.5)
Absolute Lymphs (auto) 0.8 L 10^3/uL
(1.2-3.4)
Absolute Monos (auto) 1.0 H 10^3/uL
(0.1-0.6)
Immature Gran % 0.7 H %
(0-0.5)
Neutrophils % 87.7 H %
(42.2-75.2)
Lymphocytes % 5.1 L %
(20.5-51.1)
Glucose 119 H mg/dl
(70-99)
04/20/24 12:19
04/20/24 12:19
Procedures
<Thor Ho PA-C - Last Filed: 04/21/24 07:45>
Moderate Sedation
Moderate Sedation Start Time(when first medication is given): 15:17
Moderate Sedation Procedure End Time: 15:30
<Thor Ho PA-C - Last Filed: 04/21/24 07:45>
MDM/Problems Addressed
Differential Diagnosis Includes:
Right hip discomfort. Suspicion for recurrent right hip dislocation
X-rays confirm right hip dislocation. Discussed with orthopedic patient's third dislocation in 24 hours. They recommended close reduction in the emergency room. Written consent was obtained. Sedation performed by emergency room attending and
this provider did perform closed reduction. Postreduction films demonstrate successful reduction. Further discussed with orthopedics and requested their
Input and potential admission for definitive treatment given the recurrent dislocations. Per orthopedics, the case is too complicated for revision to be done here secondary to acetabular protrusio needing a cage revision and none of the hip
surgeons operate here do this procedure.
Call placed into [facility] for potential transfer however at this point they have declined as her hip surgeon is away on vacation
Will try transferring the patient to [place]
<Thor Ho PA-C - Last Filed: 04/21/24 07:45>
*Critical Care Note
Total Time (30-74mins, 75-104mins- exclusive of procedures): Not Applicable
ED Attending Note
<Thor Ho PA-C - Last Filed: 04/21/24 07:45>
-
Portions of this chart may have been created with voice recognition software.� Occasional wrong word or��sound alike� substitutions may have occurred due to the inherent limitations of voice recognition software.
<Adrian Branham MD - Last Filed: 04/20/24 20:30>
ED Attending Note
Patient seen and examined by attending physician: Yes
I performed the substantive portion of visit, reviewed & personally made and approve the management plan that is documented in note by myself or KASSIE.: Yes
ED Attending Note:
Patient dislocated his hip again overnight without knowing it. Woke up with the leg shortened. Has had 3 other hip dislocations in the last 2 days. 1 required operating room. To have been reduced in the ER. No other complaints. No fever chills
shortness of breath chest pain etc.
On exam patient has a shortened internally rotated right leg. Good distal pulses and color. Chronic edema to both lower extremities. Lungs clear and equal. Mild tachycardia. Abdomen nontender.
Lengthy discussion with the patient. We reduced the hip in the ER with 160 mg of propofol countertraction. Significant assistance by our physician emergency veterinary assistant Ricky Ho. Airway protection.
Patient clearly needs further care for this. For dislocations in 3 days. Lengthy discussion with our orthopedics and hospital management concerning appropriate approach. Patient is okay with transfer if that is needed. We tried [facility]
which does not have an available hip surgeon. Delio cannot get to the case till next Friday. We are now trying [facility].
CT scan was done at [facility]. No acute findings to support reason for emergent transfer. As per our orthopedist, and edwards abductor brace knee immobilizer and they will see him this week and follow-up
Of note patient does have a leukocytosis. However no infectious symptoms were found. And mild tachycardia has been an ongoing issue. Clinically stable
Discharge Plan
Departure
Patient Disposition: Home (Routine Discharge)
Date of Disposition: 04/20/24
Time of Disposition: 20:03
Patient with high blood pressure during this ER visit?: Yes
Discharge Problem:
Dislocation, hip closed, HTN (hypertension)
Instructions: Hip Dislocation (DC), Moderate Sedation in Adults (DC)
Prescriptions:
No Action
multivitamin [TAB A JACKIE] Tablet
1 tab PO DAILY
furosemide 40 mg Tablet
40 mg PO DAILY
acetaminophen 325 mg Tablet
650 mg PO BIDPRN PRN (Reason: mild pain)
triamcinolone acetonide 0.1 % Ointment
1 applic TOPICAL HSPRN PRN (Reason: elbows/sacrum/B/L thighs)
Patient Comments:
04/20/2024, for psoriasis.
losartan 25 mg Tablet
25 mg PO DAILY
risperidone 1 mg Tablet
1 mg PO BID
Abilify Maintena 400 mg Suspension,Extended Rel Syring
400 mg IM QMONTH
Referrals:
[facility] [Family Provider] -
Activity Restrictions/Additional Instructions:
Use the knee immobilizer and abductor brace
Call [facility]. Dr. Ricky Arteaga
[phone]
Call first thing tomorrow morning and they will see him Friday in his clinic for definitive management of this recurrent dislocation
Interventions
Interventions:
*Risk Screen - Suicide Last Done: 04/20/24 12:14
*General Assessment Last Done: 04/20/24 12:14
*Neglect/Abuse Screening Last Done: 04/20/24 12:14
*Nursing Disposition Last Done: 04/21/24 01:52
ED-Musculoskeletal Assessment Last Done: 04/20/24 12:29
Discharge Date and Time
Discharge Date/Time: 04/21/24 01:53
Print Language: BRAZILIAN
[2024-04-21 01:52] VITALS: BP 125/82
== END 2024-04-21 01:53 | disposition home or self-care (01) ==
LOC: EMR 12:11
PROVIDERS: Physician Assistant; EMERGENCY PHYSICIAN Emergency Medicine
DX: T84.020A Dislocation of internal right hip prosthesis, initial encounter (principal); X58.XXXA Exposure to other specified factors, initial encounter; R03.0 Elevated blood-pressure reading, without diagnosis of hypertension; R00.0 Tachycardia, unspecified; F17.200 Nicotine dependence, unspecified, uncomplicated; Z96.641 Presence of right artificial hip joint
CPT/HCPCS: 99285; 27265; 96374; 99152; 96376; 73501; 73502; 73700; 80053; 85025

== ENCOUNTER 2024-04-22 16:35 | Emergency (ER) | payer OTHER, SELFPAY ==
[2024-04-22] VITALS (13 sets, daily range): BP systolic 111–145; BP diastolic 64–104; BMI 32.0
--- NOTE | 2024-04-22 19:12 | ED.GENMED ---
History of Present Illness
<ANUM Murcia - Last Filed: 04/22/24 21:36>
General
Chief Complaint: Musculo-Skeletal Complaint
Source: patient
Exam Limitations: none
Time Seen by Provider: 04/22/24 18:39
History of Present Illness
History of Present Illness:
This is a 68 year old male that is brought in by ambulance with c/o right hip dislocation. States that he went to sit down on the toilet and his right hip popped out. Patient has been there 5 times for his hip dislocation. Denies any falls or
injury. States that he has a slight headache. Denies any fever, chills, chest pain, SOB, abd pain, nausea, vomiting, diarrhea, dizziness, urinary burning.
Past History
<ANUM Murcia - Last Filed: 04/22/24 21:36>
Past History
ED Past Medical History: Psychiatric (Depression) and Other (Psoriasis); Negative Asthma, HTN, Hypercholesterolemia or NIDDM
ED Past Surgical History: Orthopedic (Right hip replacement)
Social History
Tobacco: Former smoker
Alcohol: Former (Beer 3)
Personal:
Living: correction
Review of Systems
<ANUM Murcia - Last Filed: 04/22/24 21:36>
Review of Systems
All Other Systems: ROS reviewed and negative except as documented in HPI and ROS
Constitutional: Reports no symptoms; Denies fever or chills
EENT: Reports no symptoms
Respiratory: Reports no symptoms; Denies cough or trouble breathing
Cardiac: Reports no symptoms; Denies chest pain
ABD/GI: Reports no symptoms; Denies abdominal pain, nausea, vomiting or diarrhea
: Reports no symptoms; Denies dysuria, frequency or urgency
Musculoskeletal: Reports joint pain (Right hip)
Skin: Reports no symptoms
Neurological: Reports headache; Denies dizzy
Psychiatric: Reports no symptoms
Phy Exam
<ANUM Murcia - Last Filed: 04/22/24 21:36>
General Physical Exam
General Presentation: no apparent distress
General age: appears stated age
General Skin: warm and dry
General Habitus: normal
General Mental: alert
General Hydration: appears well hydrated
ENT Exam
ENT Exam: TM's normal, pharynx normal and neck supple
Eye Exam
Eye Exam: EOMI
Cardiovascular Exam
Cardiovascular Exam: regular rate/rhythm and normal peripheral pulses
Pulmonary Exam
Pulmonary Exam: lungs clear, no respiratory distress, no rales, chest non tender, no crackles, no rhonchi, no wheezing and no cough
Gastrointestinal Exam
Gastrointestinal Exam: normal bowel sounds, non tender, soft, no organomegaly, no pulsatile mass and non distended
Musculoskeletal Exam
Musculoskeletal Exam: edema (+2 pitting edema of both lower legs. ) and other (Hip dislocation with slight internal rotation)
Skin Exam
Skin Exam: normal color, warm/dry and no petechia
Psychiatric Exam
Psychiatric Exam: normal mood/affect
Course
<ANUM Murcia - Last Filed: 04/22/24 21:36>
Orders/Labs/Results
Orders:
Orders
04/22/24 19:12
Hip, Right 2-3 Views [CR Hip - RT w/wo Pel 2-3 Vw*] Urgent
Comment:
Reason For Exam: Possible dislocation
Include a pelvis x-ray?: No
04/22/24 20:53
Propofol [Diprivan] 20 ml .ROUTE .STK-MED
04/22/24 21:09
CR Hip - RT without Pel 1 Vw Urgent
Comment:
Reason For Exam: post reduction
Vital Signs
Initial and Last Documented VS:
Initial Vital Signs
Temp Pulse Resp BP Pulse Ox
97.8 F 118 16 145/86 99
04/22/24 16:45 04/22/24 16:45 04/22/24 16:45 04/22/24 16:45 04/22/24 16:45
Last Documented Vital Signs
Temp Pulse Resp BP Pulse Ox
97.8 F 106 26 119/84 98
04/22/24 21:37 04/22/24 21:37 04/22/24 21:37 04/22/24 21:37 04/22/24 21:37
<David Yancey DO - Last Filed: 04/22/24 21:51>
Orders/Labs/Results
Orders:
Orders
04/22/24 19:12
Hip, Right 2-3 Views [CR Hip - RT w/wo Pel 2-3 Vw*] Urgent
Comment:
Reason For Exam: Possible dislocation
Include a pelvis x-ray?: No
04/22/24 20:53
Propofol [Diprivan] 20 ml .ROUTE .STK-MED
04/22/24 21:09
CR Hip - RT without Pel 1 Vw Urgent
Comment:
Reason For Exam: post reduction
Vital Signs
Initial and Last Documented VS:
Initial Vital Signs
Temp Pulse Resp BP Pulse Ox
97.8 F 118 16 145/86 99
04/22/24 16:45 04/22/24 16:45 04/22/24 16:45 04/22/24 16:45 04/22/24 16:45
Last Documented Vital Signs
Temp Pulse Resp BP Pulse Ox
97.8 F 106 26 119/84 98
04/22/24 21:37 04/22/24 21:37 04/22/24 21:37 04/22/24 21:37 04/22/24 21:37
Procedures
<ANUM Murcia - Last Filed: 04/22/24 21:36>
Moderate Sedation
ASA Risk Score: Class I
Chart and allergies reviewed: Yes
Consent for anesthesia obtained: Yes
Time out completed (validating right patient & procedure): Yes
Moderate Sedation Start Time(when first medication is given): 21:26
History of difficult intubation: No
Airway free of obstruction: Yes
Patient has a gag reflex: Yes
Patient is able to open mouth: Yes
Patient has no dentures: No
Patient has no loose teeth: No
Medication administered by Provider during Moderate Sedation: IV Propofol (mg)
Total dose administered: 170
Time drug administered: 21:03
Moderate Sedation Procedure End Time: 21:20
Comment: Propofol 100mg to start and then at 21:05 30mg at 21:05, 40mg at 21:07
<ANUM Murcia - Last Filed: 04/22/24 21:36>
MDM/Problems Addressed
Differential Diagnosis Includes:
right hip dislocation.
MDM/Problems Addressed:
This is a 68 year old male that comes in with c/o right hip dislocation. This is the 5th time he has dislocated his him in the past 2 weeks.
Will get X-ray and Reduce if needed.
Conscious sedation done with Dr. Yancey. Procedure complete with hip reduced. Will discharge back to [facility]. Will sent back in ambulance so as not to pop him our again. patient is to follow up at [place] with Ricky Arteaga.
Chronic conditions affecting care:
Orthopedic issues.
Acute Exacerbation and/or Progression of Chronic Illness:
Orthopedic issues.
<ANUM Murcia - Last Filed: 04/22/24 21:36>
*Radiology
Radiology exam reviewed: radiology read reviewed (Right hip-Superolateral dislocation of the right hip prosthesis femoral head component. No overt acute displaced fracture identified. )
*Pulse Oximetry
Patient hypoxic: no
*EKG
Interpreted by ED Provider?: NA
Rate: EKG- N/A
*Art Tracer Interpretation
Rate: Art Tracer- N/A
*Critical Care Note
Total Time (30-74mins, 75-104mins- exclusive of procedures): Not Applicable
ED Attending Note
<ANUM Murcia - Last Filed: 04/22/24 21:36>
-
Portions of this chart may have been created with voice recognition software.� Occasional wrong word or��sound alike� substitutions may have occurred due to the inherent limitations of voice recognition software.
<David Yancey DO - Last Filed: 04/22/24 21:51>
ED Attending Note
Patient seen and examined by attending physician: Yes
I performed the substantive portion of visit, reviewed & personally made and approve the management plan that is documented in note by myself or KASSIE.: Yes
ED Attending Note:
I agree with Lynn's note
Patient presents to the emergency room after developing right hip pain. Patient has been here in the emergency room several times recently for right hip dislocations. Extensive conversations were had during his last ER visit with orthopedics here
and at other referral centers to arrange appropriate definitive management of this repetitive dislocating joint. Plan is for him to follow-up at the [facility] and this appointment is tomorrow.
Physical exam
Right leg internally rotated and shortened. Pain with minimal movement. Neurovascular intact
Procedural sedation administered and the right hip was reduced by myself. Postreduction films show adequate reduction. No benefit in keeping the patient here as he needs to get to a referral center for definitive management. Patient be discharged
back to the correction with a will be responsible for getting him to his orthopedics appointment tomorrow
Discharge Plan
Departure
Patient Disposition: [facility]
Date of Disposition: 04/22/24
Time of Disposition: 21:31
Patient with high blood pressure during this ER visit?: No
Condition: Good
Covid-19: Not Applicable
Discharge Problem:
S/P closed reduction of dislocated total hip prosthesis
Instructions: Knee Immobilizer (DC)
Prescriptions:
No Action
multivitamin [TAB A JACKIE] Tablet
1 tab PO DAILY
furosemide 40 mg Tablet
40 mg PO DAILY
acetaminophen 325 mg Tablet
650 mg PO BIDPRN PRN (Reason: mild pain)
triamcinolone acetonide 0.1 % Ointment
1 applic TOPICAL HSPRN PRN (Reason: elbows/sacrum/B/L thighs)
Patient Comments:
04/20/2024, for psoriasis.
losartan 25 mg Tablet
25 mg PO DAILY
risperidone 1 mg Tablet
1 mg PO BID
Abilify Maintena 400 mg Suspension,Extended Rel Syring
400 mg IM QMONTH
Referrals:
NONE,* [Family Provider] -
Activity Restrictions/Additional Instructions:
As discussed, patient's hip has been reduced and prosthesis in in place. PATIENT IS TO FOLLOW UP TOMORROW AT [place] WITH DR RICKY ARTEAGA. PLEASE MAKE SURE PATIENT GET THERE. PLACE KEEP PATIENT IN BED AND TRANSFER PATIENT BY AMBULANCE. PATIENT WILL
ALSO NEED AN ELEVATED TOILET SET SO HE DOESN'T HAVE TO BEND SO MUCH. IF YOU HAVE ANY OTHER CONCERNS PLEASE RETURN TO THE EMERGENCY ROOM.
Interventions
Interventions:
*Risk Screen - Suicide Last Done: 04/22/24 16:40
*General Assessment Last Done: 04/22/24 16:40
*Neglect/Abuse Screening Last Done: 04/22/24 16:40
ED- Fall Risk Assessment Last Done: 04/22/24 16:40
*ED COVID-19 Vaccine History Last Done: 04/22/24 16:40
ED-Musculoskeletal Assessment Last Done: 04/22/24 16:45
Discharge Date and Time
Print Language: NORWEGIAN
== END 2024-04-22 22:24 ==
LOC: EMR 16:35
PROVIDERS: EMERGENCY PHYSICIAN Emergency Medicine
DX: T84.020A Dislocation of internal right hip prosthesis, initial encounter (principal); R60.0 Localized edema; R51.9 Headache, unspecified; X58.XXXA Exposure to other specified factors, initial encounter; Y79.2 Prosthetic and other implants, materials and accessory orthopedic devices associated with adverse incidents; F32.A Depression, unspecified; L40.9 Psoriasis, unspecified; Z87.891 Personal history of nicotine dependence
CPT/HCPCS: 99285; 27265; 99152; 73501; 73502